=== PATIENT | male | born 1950 | race Caucasian/White ===

== ENCOUNTER 2016-11-21 20:35 | Inpatient (IN) | payer MEDICARE ==
[~2016-11-21] VITALS: Ht 170.2 cm; Wt 84.4 kg
[2016-11-21] MEDS ORDERED: SODIUM CHLORIDE 0.9% 1,000ML IVBOLUS ONE ×2 (21:00→23:00)
[2016-11-21] MEDS ORDERED: SODIUM CHLORIDE FLUSH 10ML SYR IVF ONE (21:00)
[2016-11-21] MEDS ORDERED: DOCU100C8 PO (21:20)
[2016-11-21] MEDS ORDERED: RISP1TAB3 PO (21:20)
[2016-11-21] MEDS ORDERED: GABA100C PO (21:20)
[2016-11-21] MEDS ORDERED: ASPI-496 PO (21:20)
[2016-11-21] MEDS ORDERED: POTA20TA89 PO (21:20)
[2016-11-21] MEDS ORDERED: ATOR40TA78 PO (21:20)
[2016-11-21] MEDS ORDERED: ESCI5TAB7 PO (21:20)
[2016-11-21] MEDS ORDERED: PANT40TA5 PO (21:20)
[2016-11-21] MEDS ORDERED: DIVA125T3 PO (21:20)
[2016-11-21 21:51] LABS: DAU SCREEN DISCLAIMER
[2016-11-21 21:52] LABS: BLOOD UREA NITROGEN 24 mg/dL (7-18)
[2016-11-21 21:58] LABS: ASPARTATE AMINO TRANSFERASE 22 U/L (15-37)
[2016-11-21 22:00] LABS: IS PT STATUS REG ER OR PRE ER? YES
[2016-11-21 22:36] LABS: PH, VENOUS 7.276 pH (7.320-7.420)
[2016-11-21] MEDS ORDERED: REGULAR INSULIN 62.5 UNITS in SODIUM CHLORIDE 0.9% 249.375 ML IV PRN ×2 (22:52→23:11)
[2016-11-21] MEDS ORDERED: POTASSIUM CHLORIDE 40 MEQ in SODIUM CHLORIDE 0.9% 500 ML IV ONE (23:00)
[2016-11-21] MEDS ORDERED: D5%-0.45% NACL 1,000 ML IV PRN (23:11)
[2016-11-21] MEDS ORDERED: ONDANSETRON 2MG/ML, 2ML IVPush PRN (23:30)
[2016-11-21] MEDS ORDERED: ACETAMINOPHEN 325 MG TABLET PO PRN (23:30)
[2016-11-22] MEDS: SODIUM CHLORIDE 0.9% 1,000 ML IV SCH ×2 (00:28→07:11)
[2016-11-22 00:53] LABS: BLOOD UREA NITROGEN 25 mg/dL (7-18)
[2016-11-22 02:30] VITALS: BP 159/117
[2016-11-22 04:00] VITALS: BP 147/97
[2016-11-22 06:37] LABS: BLOOD UREA NITROGEN 21 mg/dL (7-18)
[2016-11-22] MEDS ORDERED: ENOXAPARIN 30 MG/0.3 ML SQ SCH (09:00)
[2016-11-22 11:39] LABS: BLOOD UREA NITROGEN 18 mg/dL (7-18)
[2016-11-22] MEDS: INSULIN DETEMIR 100 UNITS/ML, PEN SQ-INSULIN SCH (12:19)
[2016-11-22] MEDS: INSULIN ASPART 100 UNITS/ML, PEN SQ-INSULIN SCH ×2 (14:10→20:35)
[2016-11-22 16:20] LABS: BLOOD UREA NITROGEN 15 mg/dL (7-18)
[2016-11-22] MEDS ORDERED: INSULIN ASPART 100 UNITS/ML, PEN SQ-INSULIN ONE (18:30)
[2016-11-23] MEDS: INSULIN DETEMIR 100 UNITS/ML, PEN SQ-INSULIN SCH ×3 (00:26→23:31)
[2016-11-23 02:41] VITALS: BP 150/80
[2016-11-23 06:34] LABS: BLOOD UREA NITROGEN 13 mg/dL (7-18)
[2016-11-23 06:56] VITALS: BP 111/72
[2016-11-23] MEDS: INSULIN ASPART 100 UNITS/ML, PEN SQ-INSULIN SCH ×4 (08:24→23:32)
[2016-11-23] MEDS: ENOXAPARIN 40 MG/0.4 ML SQ SCH (08:26)
[2016-11-23 12:37] VITALS: BP 109/76
[2016-11-23 20:00] VITALS: BP 128/79
[2016-11-24 02:00] VITALS: BP 134/79
[2016-11-24 05:51] LABS: BLOOD UREA NITROGEN 8 mg/dL (7-18)
[2016-11-24 07:46] VITALS: BP 131/80
[2016-11-24] MEDS: ENOXAPARIN 40 MG/0.4 ML SQ SCH (08:37)
[2016-11-24] MEDS: INSULIN ASPART 100 UNITS/ML, PEN SQ-INSULIN SCH ×4 (08:37→23:26)
[2016-11-24] MEDS ORDERED: POTASSIUM CHLORIDE 20 MEQ TAB.ER.PRT PO ONE (09:00)
[2016-11-24] MEDS: INSULIN DETEMIR 100 UNITS/ML, PEN SQ-INSULIN SCH ×2 (11:17→23:26)
[2016-11-24 13:56] VITALS: BP 127/80
[2016-11-24 20:00] VITALS: BP 98/77
[2016-11-25 02:00] VITALS: BP 101/78
[2016-11-25] MEDS: ENOXAPARIN 40 MG/0.4 ML SQ SCH (08:42)
[2016-11-25] MEDS: INSULIN ASPART 100 UNITS/ML, PEN SQ-INSULIN SCH (08:42)
[2016-11-25 09:09] LABS: BLOOD UREA NITROGEN 13 mg/dL (7-18)
[2016-11-25 09:14] LABS: ASPARTATE AMINO TRANSFERASE 44 U/L (15-37)
[2016-11-25] MEDS ORDERED: INSU100I18 SQ-INSULIN (10:06)
[2016-11-25] MEDS ORDERED: INSU100I28 SQ-INSULIN (10:06)
[2016-11-25] MEDS ORDERED: PNEUMOCOCCAL 23 VACCINE IM-VACC ONE (11:30)
== END 2016-11-25 12:17 | DRG 637 ==
LOC: EDBD 20:35 → SUATTDRO 23:10 → ED 23:32 → EDIP 11-22 00:08 → CCU 11-22 01:55 → 4EST 11-22 23:06
PROVIDERS: ADMIT Hospitalist; ATTEND Hospitalist
DX: E13.10 Other specified diabetes mellitus with ketoacidosis without coma (principal); G93.41 Metabolic encephalopathy; N17.9 Acute kidney failure, unspecified; E87.1 Hypo-osmolality and hyponatremia; F03.90 Unspecified dementia, unspecified severity, without behavioral disturbance, psychotic disturbance, mood disturbance, and anxiety; I25.10 Atherosclerotic heart disease of native coronary artery without angina pectoris; K21.9 Gastro-esophageal reflux disease without esophagitis
CPT/HCPCS: 36415; 70450; 71010; 80048; 80053; 80307; 81001; 82010; 82140; 82803; 82962; 83036; 83735; 83930; 83935; 84100; 84484; 85025; 87081; 90732; 93005; 96361; 96365; J1650; J1815; J3480; J7030; J7040; J7050